=== PATIENT | female | born 1975 | race Caucasian/White ===

== ENCOUNTER 2024-09-06 08:11 | Emergency (ER) | payer SELFPAY ==
[2024-09-06 08:32] LABS: % Basophils 1.5 % (0-2); % Eosinophils 2.4 % (0-6); % Immature Granulocytes 0.3 % (0-0.5); % Lymphocytes 30.2 % (20.5-51.1); % Neutrophils 56.6 % (42.2-75.2); Absolute Basophils 0.1 10^3/uL (0-0.2); Absolute Eosinophils 0.2 10^3/uL (0-0.7); Absolute Monocytes 0.6 10^3/uL (0.1-0.6); Absolute Neutrophils 3.7 10^3/uL (1.4-6.5); Hematocrit 41.8 % (37.0-47.0); Hemoglobin 14.3 g/dL (12.0-16.0); Mean Corp Hgb Conc. 34.2 g/dL (33.0-37.0); Mean Corpuscular Hgb 32.9 pg (27.0-31.0); Mean Corpuscular Volume 96.1 fL (81.0-99.0); Mean Platelet Volume 9.1 fL (7.4-10.4); Nucleated Red Blood Cells % 0 %; Platelet Count 288 10^3/uL (130-400); Red Blood Cell Count 4.35 10^6/uL (4.20-5.40); Red Cell Dist. Width 12.9 % (11.5-14.5); White Blood Cell Count 6.6 10^3/uL (4.8-10.8)
[2024-09-06 08:45] LABS: ALT (SGPT) 36 U/L (0-35); AST (SGOT) 42 U/L (14-36); Albumin 4.9 g/dl (3.5-5.0); Alkaline Phosphatase 66 U/L (38-126); Blood Urea Nitrogen 14 mg/dl (7-17); Calcium 9.2 mg/dl (8.4-10.2); Carbon Dioxide 26 mmol/L (22-30); Chloride 106 mmol/L (98-107); Glucose 117 mg/dl (70-99); Potassium 4.3 mmol/L (3.5-5.1); Sodium 144 mmol/L (135-145); Total Bilirubin 0.4 mg/dl (0.2-1.3); Total Protein 7.7 g/dl (6.3-8.2); eGFR > 60.00
[2024-09-06 08:55] LABS: Troponin I < 0.012 ng/ml
--- NOTE | 2024-09-06 09:36 | ED.GENMED ---
History of Present Illness
General
Chief Complaint: Breathing Problem
Source: patient
Exam Limitations: none
Time Seen by Provider: 09/06/24 09:27
History of Present Illness
History of Present Illness:
See MDM
Past History
Past History
ED Past Medical History: COPD and Hypothyroidism
ED Past Surgical History: Appendectomy
Social History
Tobacco: Smoker
Alcohol: None
Phy Exam
Physical Exam
Physical Exam:
See MDM
Scores
Heart Failure Risk
Heart Failure Risk Score: Not Applicable
Course
Orders/Labs/Results
Orders:
Orders
09/06/24 08:15
Electrocardiogram (*1) Urgent
Reason for Study: Shortness of Breath
EKG- Treatment ONCE
09/06/24 08:20
Complete Blood Count/With Diff Urgent
Comprehensive Metabolic Panel Urgent
Free T4 Urgent
TSH Reflex To Free T4 Urgent
Troponin I Urgent
09/06/24 09:36
CT Chest Pe Study Urgent
Comment:
Reason For Exam: SOB and CP
Dexamethasone Sod Phosphate [Decadron] 10 mg IV NOW STA
Ipratropium/Albuterol Sulfate [Duoneb] 3 ml INH R NOW STA
Abnormal Lab Results
09/06/24
08:20
MCH 32.9 H pg
(27.0-31.0)
Glucose 117 H mg/dl
(70-99)
AST 42 H U/L
(14-36)
ALT 36 H U/L
(0-35)
TSH (Reflex) 33.60 H uIU/ml
(0.47-4.68)
09/06/24 08:20
09/06/24 08:20
Vital Signs
Initial and Last Documented VS:
Initial Vital Signs
Temp Pulse Resp Pulse Ox
98.5 F 92 16 98
09/06/24 08:13 09/06/24 08:13 09/06/24 08:13 09/06/24 08:13
Last Documented Vital Signs
Temp Pulse Resp BP Pulse Ox
98.5 F 72 16 107/75 97
09/06/24 08:13 09/06/24 09:45 09/06/24 10:00 09/06/24 09:45 09/06/24 09:45
MDM/Problems Addressed
Differential Diagnosis Includes:
HPI and MDM Narrative:
49-year-old female presenting with shortness of breath. This has been ongoing since yesterday. Patient states it was worse a few weeks ago when she was diagnosed with COPD exacerbation. At that time, she was placed on azithromycin. Patient is an
active smoker but states she is currently trying to quit. Patient states she is getting nervous because this is now associated with chest tightness. Does not appear to be exertional. Blood work was done prior to my evaluation. Troponin is
negative any edema. Discussed low concern for ACS. Patient found to have an elevated TSH. She acknowledges noncompliance to her levothyroxine. We discussed following up with endocrinology and take her medicine as prescribed. We discussed
cessation of smoking. Given her ongoing symptoms, will obtain CT to rule out PE. Will give dose of Decadron and DuoNeb
Physical exam
General: Mildly uncomfortable
HEENT: protecting airway
Neck: appears supple
CV: No evidence of cyanosis. Regular rate and rhythm
Resp: No accessory muscle use. Expiratory wheezing noted. Prolonged expiratory phase
Abd: Non-distended
Extremities: No deformities
Neuro: alert
Psych: Mildly anxious
Skin: Intact
Problems Addressed including Acute and Chronic Conditions affecting care:
1. Shortness of breath and chest pain
Acuity: acute
Prognosis: stable
Details: Likely in the setting of COPD exacerbation. Will obtain CT to rule out PE. Patient given Decadron and DuoNeb
2. Hypothyroidism
Acuity: acute on chronic
Prognosis: stable
Details: Discussed taking her medication as prescribed and will give information for local endocrinology
Updates
CT negative for PE. Patient feels comfortable going home
Differential Diagnosis (but not limited to): COPD exacerbation, pneumonia, bronchitis, PE
Testing considered: Second troponin but doubt ACS given duration of symptoms with normal troponin
Drug therapy (if applicable): OTC meds, please see d/c instruction regarding Rx drugs
Amount and/or Complexity of Data Reviewed
Clinical info obtained from: Patient
External data reviewed: N/A
Labs I independently reviewed (but not limited to): TSH elevated, troponin normal
Radiology: The CT scan was personally and independently reviewed. In addition, official CT report reviewed.
Pulse Ox: not hypoxic
EKG independently reviewed: Sinus rhythm, normal axis, no STEMI
Fixture Designer: N/A
Critical Care: N/A
Risk of Complication:
Social Determinants of health: Good social support
Discussed with other providers: N/A
Escalation of Care includes Admit/Obs: After being observed in the Emergency Department, pt stable for discharge.
Occasional wrong word or 'sound a like' substitutions may have occurred due to the inherent limitations of voice recognition software. Read the chart carefully and recognize, using context, where substitutions have occurred.
*Critical Care Note
Total Time (30-74mins, 75-104mins- exclusive of procedures): Not Applicable
ED Attending Note
-
Portions of this chart may have been created with voice recognition software.� Occasional wrong word or��sound alike� substitutions may have occurred due to the inherent limitations of voice recognition software.
Discharge Plan
Departure
Patient Disposition: Home (Routine Discharge)
Date of Disposition: 09/06/24
Time of Disposition: 11:34
Patient with high blood pressure during this ER visit?: No
Discharge Problem:
Asthma exacerbation in COPD
Instructions: COPD Exacerbation, Adult ED
Prescriptions:
New
prednisone 10 mg tablet
See Rx Instructions .ROUTE .COMPLEX Qty: 45 0RF
Rx Instructions:
5 tabs day 1-3, 4 tabs day 4-6, 3 tabs day 7-9, 2 tabs day 10-12, 1 tab day 13-15
albuterol sulfate 90 mcg/actuation HFA aerosol inhaler
2 puff inhalation Q6H PRN (Reason: shortness of breath or wheezing) Qty: 8.5 0RF
Referrals:
Elvira Parish MD [Consulting Staff] -
Activity Restrictions/Additional Instructions:
Please return for any worsening symptoms.
You may return at any time if you have further concerns.
Please follow up with your doctor at the first available appointment, preferably this week.
Please make an appointment with the association executive and please take your thyroid medication.
Thank you for choosing [facility].
Interventions
Interventions:
*Risk Screen - Suicide Last Done: 09/06/24 08:13
*General Assessment Last Done: 09/06/24 09:47
*Neglect/Abuse Screening Last Done: 09/06/24 08:13
*ED COVID-19 Vaccine History Last Done: 09/06/24 09:47
ED- Cardiac Assessment Last Done: 09/06/24 09:28
ED- Pulmonary Assessment Last Done: 09/06/24 09:28
Discharge Date and Time
Print Language: DIVEHI
[2024-09-06 09:43] VITALS: BMI 22.7
[2024-09-06 09:45] VITALS: BP 107/75
[2024-09-06] MEDS: DECADRON 10 MG IV (09:47)
[2024-09-06] MEDS: DUONEB 3 ML INH (09:48)
[2024-09-06 10:07] LABS: Free T4 1.35 ng/dl (0.78-2.19)
[2024-09-06 11:37] VITALS: BP 115/85
== END 2024-09-06 11:40 | disposition home or self-care (01) ==
LOC: EMR 08:11
PROVIDERS: Emergency Medicine; EMERGENCY PHYSICIAN Student in an Organized Health Care Education/Training Program
DX: J45.901 Unspecified asthma with (acute) exacerbation (principal); J44.1 Chronic obstructive pulmonary disease with (acute) exacerbation; E03.9 Hypothyroidism, unspecified; F17.200 Nicotine dependence, unspecified, uncomplicated; Z90.49 Acquired absence of other specified parts of digestive tract
CPT/HCPCS: 99284; 94640; 96374; 71275; 80053; 84439; 84443; 84484; 85025; 93005; Q9967

== ENCOUNTER 2025-08-27 16:51 | Emergency (ER) | payer SELFPAY ==
[2025-08-27 16:53] VITALS: BP 114/78
[2025-08-27 16:59] VITALS: BP 114/78; BMI 21.5
[2025-08-27 17:00] VITALS: BP 112/76
--- NOTE | 2025-08-27 17:09 | ED.GENMED ---
History of Present Illness
General
Chief Complaint: Breathing Problem
Source: patient and family
Time Seen by Provider: 08/27/25 16:59
History of Present Illness
History of Present Illness:
This patient is a 50-year-old female presents emergency department after an episode of difficulty breathing. She states that a few weeks ago she was diagnosed with 'bronchitis', treated with an inhaler, a course of prednisone, and a Z-Tono. She
felt that her symptoms resolved with the exception of a occasional dry cough, which she says is somewhat expected given her smoking history. Today she was feeling perfectly well and states that she only had 2 cigarettes as she is trying to reduce
her smoking. As she was preparing dinner she had the somewhat abrupt onset of uncontrolled dry cough, throat tightness, dyspnea, and then nausea and vomiting. Her daughter states that she witnessed her coughing a lot and her face getting red.
Medics were called. Patient states that EMS/fire crew were also 'triggered' by what she was cooking with described as a 'pepper spray affect'. The daughter denies having any symptoms. Patient did receive a nebulizer treatment on transport. Since
arrival she feels significantly better and denies any dyspnea. She still has a residual cough. Patient denies having any itching, hives, headache, dizziness, lip or tongue swelling, change in voice. There is no personal or family history of DVT.
She denies recent immobilization or trauma, leg swelling, estrogen use
Past History
Past History
ED Past Medical History: COPD and Hypothyroidism
ED Past Surgical History: Appendectomy
Social History
Tobacco: Smoker
Alcohol: None
Drug: None
Living: with family
Phy Exam
Physical Exam
Physical Exam:
GENERAL: Alert , in no apparent distress, occasional dry cough noted
EYE: pupils equal and reactive
NECK: Supple, no significant adenopathy.
ENT: o/p clr, mmm, no trismus, no drool, voice clear, no lip or tongue swelling noted.
CARDIAC: Regular rate and rhythm .
LUNGS: Clear breath sounds bilaterally, no acute respiratory distress, no wheezes/rales/rhonchi
ABDOMEN: Soft, without focal tenderness, no r/g, no cvat
NEUROLOGICAL: Alert and oriented, no focal neuro deficits
SKIN: Warm and dry, skin intact.
MUSCULOSKELETAL: No edema, well perfused.
PSYCH: Normal and appropriate interaction.
Course
Orders/Labs/Results
Orders:
Orders
08/27/25 17:09
Electrocardiogram (*1) Stat
Reason for Study: Other
Other Reason for Exam: chest pain
Cardiac Monitoring- Treatment ONCE
EKG- Treatment ONCE
08/27/25 17:31
Complete Blood Count/No Diff Urgent
Comprehensive Metabolic Panel Urgent
D-Dimer Urgent
08/27/25 17:53
Ipratropium/Albuterol Sulfate [Duoneb] 3 ml INH R NOW ONE
08/27/25 18:36
CT Chest PE Study Urgent
Comment:
Reason For Exam: sob
08/27/25 20:12
Prednisone [Deltasone] 50 mg PO NOW STA
Abnormal Lab Results
08/27/25
17:31
RBC 3.99 L 10^6/uL
(4.20-5.40)
MCH 32.6 H pg
(27.0-31.0)
D-Dimer 2.03 H ug/mlFEU
(0.00-0.50)
Carbon Dioxide 21 L mmol/L
(22-30)
08/27/25 17:31
08/27/25 17:31
Vital Signs
Initial and Last Documented VS:
Initial Vital Signs
BP
114/78
08/27/25 16:53
Last Documented Vital Signs
Temp Pulse Resp BP Pulse Ox
98.6 F 75 19 121/75 96
08/27/25 17:36 08/27/25 18:45 08/27/25 18:45 08/27/25 18:00 08/27/25 18:45
*Pulse Oximetry
SaO2: 93
Update Note
Update Note:
Patient presents to the Emergency Department with __dyspnea nausea vomiting cough
Number and Complexity of Problems Addressed at the Encounter
� Chronic conditions affecting care:
� Acute Exacerbation and/or Progression of Chronic Illness:
� Differential Diagnosis includes: But not limited to bronchospasm, allergic reaction, PE, etc. etc.
Amount and/or Complexity of Data to be Reviewed and Analyzed
� I performed an independent evaluation of and my interpretation is:
EKG: Read by me, normal sinus rhythm, normal rate, normal axis, no acute ischemia
CT:No evidence of central pulmonary embolism.
Stable mild to moderate partial T11 vertebral compression fracture.
Xrays:
Laboratory Studies: Generally unremarkable except for D-dimer which is elevated
Other:
� Review of other/old records reveals:
� Clinical information was obtained by an independent historian: Daughter who is at bedside and witnessed event.
� Prescriptions/Medications Considered but not given:
� Further testing considered but not performed:
Risk of Complications and/or Morbidity or Mortality of Patient Management
� Social determinants of health affecting care:
� Discussion with other providers (PCP, Hospitalists, Consultants, etc):
� Escalation of care including admission/observation vs risk of discharge considered: Multiple reassessments, patient remained stable, normal pulse ox, no respiratory distress. Patient stable for discharge, will prescribe EpiPen
and prednisone with close allergy/asthma follow-up, discussed with patient precautions regarding his medications, importance of follow-up and reasons return to the ER. Is unclear if her symptoms were consistent with a allergic reaction versus
unspecified bronchospasm, etc.
ED Attending Note
-
Portions of this chart may have been created with voice recognition software.� Occasional wrong word or��sound alike� substitutions may have occurred due to the inherent limitations of voice recognition software.
Discharge Plan
Departure
Patient Disposition: Home (Routine Discharge)
Date of Disposition: 08/27/25
Time of Disposition: 20:18
Patient with high blood pressure during this ER visit?: Yes
Condition: Good
Discharge Problem:
Dyspnea
Instructions: Shortness of Breath (Dyspnea) (DC), BLOOD PRESSURE
Prescriptions:
New
epinephrine [EpiPen] 0.3 mg/0.3 mL auto-injector
0.3 mg IM .STAT PRN (Reason: severe sob or swelling) Qty: 2 0RF
prednisone 50 mg tablet
50 mg PO DAILY Qty: 4 0RF
No Action
levothyroxine 175 mcg Tablet
175 mcg PO DAILY
Referrals:
Wendy Abraham MD [Active, [facility] Att[facility]] - Next open appointment
NONE,* [Family Provider, Internal Medicine]
Activity Restrictions/Additional Instructions:
IF YOU DEVELOP INCREASING/NEW/PERSISTENT SHORTNESS OF BREATH, ANY TROUBLE SWALLOWING, VOMITING, CHEST PAIN/PRESSURE, LIP/TONGUE SWELLING, RASH, OR OTHER WORRISOME SIGNS, GO TO THE ER IMMEDIATELY!
Interventions
Interventions:
*Risk Screen - Suicide Last Done: 08/27/25 16:59
*General Assessment Last Done: 08/27/25 16:59
*Neglect/Abuse Screening Last Done: 08/27/25 16:59
*ED COVID-19 Vaccine History Last Done: 08/27/25 16:59
*ED Influenza Vaccine History Last Done: 08/27/25 16:59
[facility] Risk Assessment Tool Last Done: 08/27/25 16:59
ED- Cardiac Assessment Last Done: 08/27/25 16:59
ED- Pulmonary Assessment Last Done: 08/27/25 16:59
Discharge Date and Time
Print Language: UPPER SORBIAN
[2025-08-27 17:36] VITALS: BP 115/77
[2025-08-27 17:37] LABS: Hematocrit 38.3 % (37.0-47.0); Hemoglobin 13.0 g/dL (12.0-16.0); Mean Corp Hgb Conc. 33.9 g/dL (33.0-37.0); Mean Corpuscular Volume 96.0 fL (81.0-99.0); Platelet Count 326 10^3/uL (130-400); Red Cell Dist. Width 12.5 % (11.5-14.5)
[2025-08-27 17:51] LABS: ALT (SGPT) 28 U/L (0-35); AST (SGOT) 30 U/L (14-36); Albumin 4.7 g/dl (3.5-5.0); Alkaline Phosphatase 79 U/L (38-126); Blood Urea Nitrogen 14 mg/dl (7-17); Calcium 9.3 mg/dl (8.4-10.2); Carbon Dioxide 21 mmol/L (22-30); Chloride 105 mmol/L (98-107); Estimated Creatinine Clearance 118 ml/min; Glucose 99 mg/dl (70-99); Potassium 4.0 mmol/L (3.5-5.1); Sodium 139 mmol/L (135-145); Total Protein 7.4 g/dl (6.3-8.2); eGFR > 60.00
[2025-08-27 17:55] LABS: D-Dimer 2.03 ug/mlFEU (0.00-0.50)
[2025-08-27] MEDS: DUONEB 3 ML INH (17:55)
[2025-08-27 18:00] VITALS: BP 121/75
--- NOTE | 2025-08-27 20:08 | EDRN ---
Dr. Lorenz at bedside
[2025-08-27] MEDS: DELTASONE 50 MG PO (20:25)
== END 2025-08-27 20:30 | disposition home or self-care (01) ==
LOC: EMR 16:51
PROVIDERS: EMERGENCY PHYSICIAN Emergency Medicine
DX: R06.00 Dyspnea, unspecified (principal); J44.9 Chronic obstructive pulmonary disease, unspecified; E03.9 Hypothyroidism, unspecified; F17.210 Nicotine dependence, cigarettes, uncomplicated; Z90.49 Acquired absence of other specified parts of digestive tract
CPT/HCPCS: 99284; 94640; 71275; 80053; 85027; 85379; 93005; Q9967